=== PATIENT | female | born 1955 | race Caucasian/White ===

== ENCOUNTER 2018-12-17 11:34 | Emergency (ER) | payer SELFPAY, OTHER ==
[2018-12-17] MEDS: KETOROLAC 15 MG INJ IV (13:26)
[2018-12-17] MEDS: ACETAMINOPHEN 325 MG TAB PO (13:27)
== END 2018-12-17 13:53 | disposition home or self-care (01) ==
LOC: FTE 11:34
DX: S59.912A Unspecified injury of left forearm, initial encounter (principal); I10 Essential (primary) hypertension; W20.8XXA Other cause of strike by thrown, projected or falling object, initial encounter; Y92.89 Other specified places as the place of occurrence of the external cause
CPT/HCPCS: 29125; 99282-25